=== PATIENT | male | born 1970 | race Caucasian/White ===

== ENCOUNTER 2016-07-22 15:12 | Emergency (ER) | payer OTHER ==
[2016-07-22] MEDS ORDERED: ASPIRIN 81 MG CHEW TAB ONE (15:34)
[2016-07-22] MEDS ORDERED: KETOROLAC 30 MG/ML VIAL ONE (16:43)
== END 2016-07-22 18:16 | disposition home or self-care (01) ==
LOC: ER 15:12
CPT/HCPCS: 71010; 93005; 96374